=== PATIENT | female | born 1975 | race Caucasian/White ===

== ENCOUNTER 2021-02-19 12:37 | Emergency (ER) | payer OTHER ==
[~2021-02-19 12:37] MED LIST: ANTIVERT 12.512.5 MG PO; ASPIRIN CHEWABL81 MG PO
[2021-02-19 14:48] LABS: HEMOGLOBIN 15.8 gm/dl (12.3-15.3); RED BLOOD COUNT 5.31 M/UL (4.00-5.10); WHITE BLOOD COUNT 7.3 K/UL (4.5-11.0)
[2021-02-19 15:13] LABS: BUN/CREATININE RATIO 17 (0-10)
[2021-02-19] MEDS ORDERED: CHLORTHALIDONE25 MG PO (20:16)
== END 2021-02-19 20:00 | disposition home or self-care (01) ==
LOC: ER1 12:37
PROVIDERS: Physician Assistant
DX: R07.9 Chest pain, unspecified (principal); I10 Essential (primary) hypertension; Z88.0 Allergy status to penicillin; Z91.012 Allergy to eggs; Z85.42 Personal history of malignant neoplasm of other parts of uterus
CPT/HCPCS: 71045; 80053; 82550; 82553; 83874; 84484; 85025; 93005; 99285

== ENCOUNTER 2021-02-23 13:55 | Emergency (ER) | payer OTHER ==
[~2021-02-23 13:55] MED LIST changes: +CHLORTHALIDONE25 MG PO
[2021-02-23 15:55] LABS: HEMOGLOBIN 16.2 gm/dl (12.3-15.3); RED BLOOD COUNT 5.54 M/UL (4.00-5.10); WHITE BLOOD COUNT 8.5 K/UL (4.5-11.0)
[2021-02-23 16:33] LABS: BUN/CREATININE RATIO 16 (0-10)
== END 2021-02-23 21:33 | disposition home or self-care (01) ==
LOC: ER1 13:55
PROVIDERS: Physician Assistant
DX: R07.2 Precordial pain (principal); I10 Essential (primary) hypertension; Z88.0 Allergy status to penicillin; Z90.710 Acquired absence of both cervix and uterus
CPT/HCPCS: 71045; 80053; 82550; 82553; 83874; 84484; 85025; 85379; 93005; 99285

== ENCOUNTER 2021-03-03 22:03 | Emergency (ER) | payer OTHER ==
[2021-03-04] MEDS ORDERED: K-DUR TAB 10 M10 MEQ PO (01:26)
[2021-03-04 02:17] LABS: BUN/CREATININE RATIO 20 (0-10)
== END 2021-03-04 04:55 | disposition home or self-care (01) ==
LOC: OPSV 22:03 → ER1 22:03 → EDSTATUS 23:41 → ER1 03-04 04:55
PROVIDERS: Family Medicine
DX: E87.6 Hypokalemia (principal)
CPT/HCPCS: 36415; 80048; 83735; 84132; 93005; 96374; 99285; J0461; J3480

== ENCOUNTER → 2021-03-05 | Outpatient (CLI) | payer OTHER ==
[~2021-03-05] MED LIST changes: +K-DUR TAB 10 M10 MEQ PO
[2021-03-05 18:27] LABS: BUN/CREATININE RATIO 18 (0-10)
== END ==
LOC: LAB 17:45
PROVIDERS: Family Medicine
DX: E87.6 Hypokalemia (principal)
CPT/HCPCS: 36415; 80048; 83735

== ENCOUNTER → 2021-03-19 | Outpatient (CLI) | payer OTHER ==
[2021-03-19 18:56] LABS: BUN/CREATININE RATIO 28 (0-10)
== END ==
LOC: LAB 17:02
PROVIDERS: Physician Assistant
DX: E87.6 Hypokalemia (principal)
CPT/HCPCS: 80048

== ENCOUNTER → 2021-11-10 | Outpatient (CLI) | payer OTHER ==
[2021-11-10 17:30] LABS: HEMOGLOBIN 14.1 gm/dl (12.3-15.3); RED BLOOD COUNT 4.96 M/UL (4.00-5.10); WHITE BLOOD COUNT 6.1 K/UL (4.5-11.0)
[2021-11-10 17:52] LABS: BUN/CREATININE RATIO 17 (0-10)
== END ==
LOC: RAD 17:00
PROVIDERS: Physician Assistant
DX: R55 Syncope and collapse (principal)
CPT/HCPCS: 36415; 71046; 80048; 80076; 84443; 85025; 85379